=== PATIENT | female | born 1940 | race Caucasian/White ===

== ENCOUNTER 2018-03-31 16:28 | Emergency (ER) | payer OTHER ==
[~2018-03-31] VITALS: Ht 152.4 cm; Wt 71.6 kg
[~2018-03-31 16:28] MED LIST: ALREX 0.2%100 DROP/5 BOTH EYES; ASPIR-TRIN325 M1 PO; ASPIRIN325 MG PO; ATIVAN0.5 MG PO; ATROVENT 0.06%15 ML BOTH NARES; Aldactone PO; Ativan PO; Atrovent 0.06% Nasal BOTH NARES; BISOPROLOL-HCT1 EAC1 PO; CRESTOR; CYANOCOBALAM1000 MCG PO; Coumadin,Jantoven PO; FLONASE16 G1 BOTH NARES; Feosol PO; GLUCOSAMINE &1 EACH PO; OMEGA-31000 M1 PO; Omega III EPA + DHA PO; PROTONIX40 MG PO; Percocet 5/325,Endoc PO; Protonix PO; SPIRONOLACTONE25 MG PO; Senokot S,Pericolace PO; TOPAMAX50 MG PO; TOPIRAMATE25 MG PO; TRICOR145 MG PO; TRILIPIX135 MG PO; Topamax PO; Tricor PO; VITAMIN 12; VITAMIN D1000 UNIT PO; VITAMIN D2000 UNIT PO; ZETIA10 MG PO; ZIAC 2.5/6.251 TAB PO; Zetia PO; Ziac 2.5/6.25 PO
[2018-03-31 18:33] VITALS: BP 102/76
== END 2018-03-31 18:36 | disposition home or self-care (01) ==
LOC: EME 16:28
DX: L76.22 Postprocedural hemorrhage of skin and subcutaneous tissue following other procedure (principal); Z48.01 Encounter for change or removal of surgical wound dressing; I10 Essential (primary) hypertension; K21.9 Gastro-esophageal reflux disease without esophagitis; I25.2 Old myocardial infarction; E78.5 Hyperlipidemia, unspecified; F41.9 Anxiety disorder, unspecified; Z79.82 Long term (current) use of aspirin; Z87.891 Personal history of nicotine dependence; Z87.19 Personal history of other diseases of the digestive system; Z86.79 Personal history of other diseases of the circulatory system; Z95.9 Presence of cardiac and vascular implant and graft, unspecified; Z90.49 Acquired absence of other specified parts of digestive tract; Z90.710 Acquired absence of both cervix and uterus; Z91.040 Latex allergy status
CPT/HCPCS: 99281; 99284